=== PATIENT | female | born 1975 | race American Indian/Alaskan Native ===

== ENCOUNTER 2022-07-10 13:42 | Emergency (ER) | payer BC ==
[2022-07-10] MEDS ORDERED: SODIUM CHLORIDE 0.9% 1000 ML 1,000 ML IV ONE (14:37)
[2022-07-10] MEDS ORDERED: HYDROmorphone 1 MG/1 ML INJ IV ONE ×2 (14:37→19:41)
[2022-07-10] MEDS ORDERED: ONDANSETRON 4 MG/2 ML INJ IV ONE ×2 (14:37→19:41)
--- NOTE | 2022-07-10 15:28 | Emergency Department Report ---
ED Abdominal Pain HPI - General Chief Complaint: Abdominal Pain Stated Complaint: N/V Time Seen by Provider: 07/10/22 14:24 Source: EMS Mode of arrival: Stretcher Limitations: No Limitations - History of Present Illness Initial Comments: 41-year-old female the past medical history of hypertension currently on medications, previous cholecystectomy and tummy time presents to the hospital planing of abdominal pain, nausea, vomiting with p.o. intolerance times since approximately 3:57 AM. Pain is in epigastric area and feels like it is descrived constant ache worse with palpation and vomiting. No alleviating factors reported. Patient denies fever, hematemesis, diarrhea, or urinary symptoms. Patient also reports a history of GERD with exacerbation of reflux symptoms Severity scale (0 -10): 10 - Related Data Previous Rx's Medication Instructions Recorded Last Taken Type Ondansetron [Zofran Odt] 4 mg PO Q8HR PRN #20 tab.rapdis 07/10/22 Unknown Rx traMADoL [Ultram] 50 mg PO Q6HR PRN #14 tablet 07/10/22 Unknown Rx Allergies Allergy/AdvReac Type Severity Reaction Status Date / Time morphine Allergy Unknown Verified 07/10/22 13:56 ED Review of Systems ROS: Stated complaint: N/V Other details as noted in HPI Comment: All other systems reviewed and negative ED Past Medical Hx - Past Medical History Hx Hypertension: Yes - Surgical History Hx Cholecystectomy: Yes Additional Surgical History: A tummy tuck - Medications Home Medications: Home Medications Medication Instructions Recorded Confirmed Last Taken Type Ondansetron [Zofran Odt] 4 mg PO Q8HR PRN #20 tab.rapdis 07/10/22 Unknown Rx traMADoL [Ultram] 50 mg PO Q6HR PRN #14 tablet 07/10/22 Unknown Rx ED Physical Exam - General Limitations: No Limitations - Other Other exam information: General: Mild distress secondary to pain Head: Atraumatic Eyes: normal appearance Neck: Normal appearance, no midline tenderness Chest: Clear to auscultation bilaterally CV: Regular rate and rhythm Abdomen: Soft, normal bowel sounds, generalized abdominal tenderness greatest in epigastric area. No rebound or guarding Back: Normal inspection Extremity: Normal inspection, full range of motion Neuro: Alert O x 3, no facial asymmetry, speech clear, no gross motor sensory deficit Psych: Appropriate behavior Skin: No rash ED Course Vital Signs 07/10/22 07/10/22 07/10/22 13:52 14:14 14:30 Temperature 98.1 F Pulse Rate 64 82 53 L Respiratory 20 18 20 Rate Blood Pressure Blood Pressure 168/74 [Left] O2 Sat by Pulse 100 99 98 Oximetry 07/10/22 07/10/22 07/10/22 15:00 15:30 16:00 Temperature Pulse Rate 73 49 L 76 Respiratory 24 23 16 Rate Blood Pressure 187/107 187/107 187/107 Blood Pressure [Left] O2 Sat by Pulse 99 92 Oximetry 07/10/22 07/10/22 07/10/22 16:30 17:00 17:30 Temperature Pulse Rate 55 L 60 57 L Respiratory 19 18 20 Rate Blood Pressure 139/83 139/83 146/104 Blood Pressure [Left] O2 Sat by Pulse 97 100 98 Oximetry 07/10/22 18:20 Temperature Pulse Rate 129 H Respiratory Rate Blood Pressure 168/86 Blood Pressure [Left] O2 Sat by Pulse 100 Oximetry ED Medical Decision Making - Lab Data Result diagrams: 07/10/22 15:01 07/10/22 15:01 Lab Results 07/10/22 07/10/22 07/10/22 Range/Units 15:01 15:01 15:01 WBC 4.7 (4.5-11.0) K/mm3 RBC 4.36 (3.65-5.03) M/mm3 Hgb 12.9 (10.1-14.3) gm/dl Hct 36.9 (30.3-42.9) % MCV 85 (79-97) fl MCH 30 (28-32) pg MCHC 35 H (30-34) % RDW 16.1 H (13.2-15.2) % Plt Count 394 (140-440) K/mm3 Lymph % (Auto) 11.3 L (13.4-35.0) % [place] % (Auto) 3.9 (0.0-7.3) % Eos % (Auto) 0.0 (0.0-4.3) % Baso % (Auto) 0.4 (0.0-1.8) % Lymph # (Auto) 0.5 L (1.2-5.4) K/mm3 [place] # (Auto) 0.2 (0.0-0.8) K/mm3 Eos # (Auto) 0.0 (0.0-0.4) K/mm3 Baso # (Auto) 0.0 (0.0-0.1) K/mm3 Seg Neutrophils % 84.4 H (40.0-70.0) % Seg Neutrophils # 4.0 (1.8-7.7) K/mm3 Sodium 139 (137-145) mmol/L Potassium 3.6 (3.6-5.0) mmol/L Chloride 100.5 (98-107) mmol/L Carbon Dioxide 19 L (22-30) mmol/L Anion Gap 23 mmol/L BUN 11 (7-17) mg/dL Creatinine 0.7 (0.6-1.2) mg/dL Estimated GFR > 60 ml/min BUN/Creatinine Ratio 16 % Glucose 114 H (65-100) mg/dL Calcium 10.0 (8.4-10.2) mg/dL Total Bilirubin 0.90 (0.1-1.2) mg/dL AST 16 (5-40) units/L ALT 9 (7-56) units/L Alkaline Phosphatase 75 (35-129) units/L Total Protein 8.2 (6.3-8.2) g/dL Albumin 5.3 H (3.9-5) g/dL Albumin/Globulin Ratio 1.8 % Lipase 25 (13-60) units/L HCG, Quant < 1.00 (0-4) mIU/mL - Radiology Data Radiology results: report reviewed CT ABDOMEN AND PELVIS WITH CONTRAST INDICATION / CLINICAL INFORMATION: abd pain n,v. TECHNIQUE: Axial CT images were obtained through the abdomen and pelvis after 80 cc Omnipaque [address] scans at this location are performed using CT dose reduction for ALARA by means of automated exposure control. COMPARISON: None available. FINDINGS: LOWER CHEST: No significant abnormality. AORTA / ARTERIES: No significant abnormality. IVC / VEINS: No significant abnormality. LYMPH NODES: No significant adenopathy. COLON: No significant abnormality. APPENDIX: No significant abnormality. STOMACH / SMALL BOWEL: Linear calcifications within the stomach lumen, likely related to ingested material. The small bowel is without significant abnormality. PERITONEUM: No free fluid. No free air. No fluid collection. LIVER: No significant abnormality. GALLBLADDER: Cholecystectomy. BILE DUCTS: No significant abnormality. PANCREAS: No significant abnormality. SPLEEN: No significant abnormality. ADRENALS: No significant abnormality. RIGHT KIDNEY / URETER: No significant abnormality. LEFT KIDNEY / URETER: No significant abnormality. URINARY BLADDER: No significant abnormality. REPRODUCTIVE ORGANS: Fibroid uterus measuring 12.4 x 8.7 x 8.6 cm. SKELETAL SYSTEM: No significant abnormality. ADDITIONAL FINDINGS: None. IMPRESSION: 1. Linear calcifications within the gastric lumen, likely related to ingested material. 2. Fibroid uterus. - Medical Decision Making 46-year female presents to the hospital complaining of upper abdominal pain with nausea and vomiting. She denies urinary symptoms. No signs of fever or leukocytosis. CT abdomen pelvis does not show acute abnormality. Patient symptoms improved with ED treatment and she will be discharged on medication with symptomatic treatment. Patient states that she does take a medication for reflux at home and she cannot tolerate tramadol Critical Care Time: No Critical care attestation.: If time is entered above; I have spent that time in minutes in the direct care of this critically ill patient, excluding procedure time. ED Disposition Clinical Impression: Nausea & vomiting, Abdominal pain, Fibroid uterus Disposition: HOME / SELF CARE / HOMELESS Is pt being admited?: No Does the pt Need Aspirin: No Condition: Stable Instructions: Abdominal Pain (ED), Nausea and Vomiting, Adult, Abdominal Pain, Adult Additional Instructions: Take the medication as prescribed. Follow-up with your doctor or doctor/clinic provided. Return if symptoms worsen as indicated by your discharge instructions. Prescriptions: traMADoL [Ultram] 50 mg PO Q6HR PRN #14 tablet PRN Reason: Pain Ondansetron [Zofran Odt] 4 mg PO Q8HR PRN #20 tab.rapdis PRN Reason: Nausea And Vomiting Referrals: SETH HANSEN MD [Primary Care Provider] - 3-5 Days Time of Disposition: 19:41
[2022-07-10 17:35] LABS: Alanine Aminotransferase 9 units/L (7-56); Albumin 5.3 g/dL (3.9-5); Blood Urea Nitrogen 11 mg/dL (7-17); Hemolysis Index 10
[2022-07-10 17:36] LABS: Basophils % (Auto) 0.4 % (0.0-1.8); Hematocrit 36.9 % (30.3-42.9); Hemoglobin 12.9 gm/dl (10.1-14.3); Lymphocytes # (Auto) 0.5 K/mm3 (1.2-5.4); Lymphocytes % (Auto) 11.3 % (13.4-35.0); Mean Corpuscular HGB Conc 35 % (30-34); Mean Corpuscular Volume 85 fl (79-97); Monocytes # (Auto) 0.2 K/mm3 (0.0-0.8); Monocytes % (Auto) 3.9 % (0.0-7.3); Platelet Count 394 K/mm3 (140-440); Red Blood Count 4.36 M/mm3 (3.65-5.03); Red Cell Distribution Width 16.1 % (13.2-15.2)
[2022-07-10 17:50] LABS: BUN/Creatinine Ratio 16
--- NOTE | 2022-07-10 18:36 | Cat Scan Report ---
CT ABDOMEN AND PELVIS WITH CONTRAST INDICATION / CLINICAL INFORMATION: abd pain n,v. TECHNIQUE: Axial CT images were obtained through the abdomen and pelvis after 80 cc Omnipaque [address] scans at this location are performed using CT dose reduction for ALARA by means of automated exposure control. COMPARISON: None available. FINDINGS: LOWER CHEST: No significant abnormality. AORTA / ARTERIES: No significant abnormality. IVC / VEINS: No significant abnormality. LYMPH NODES: No significant adenopathy. COLON: No significant abnormality. APPENDIX: No significant abnormality. STOMACH / SMALL BOWEL: Linear calcifications within the stomach lumen, likely related to ingested mat erial. The small bowel is without significant abnormality. PERITONEUM: No free fluid. No free air. No fluid collection. LIVER: No significant abnormality. GALLBLADDER: Cholecystectomy. BILE DUCTS: No significant abnormality. PANCREAS: No significant abnormality. SPLEEN: No significant abnormality. ADRENALS: No significant abnormality. RIGHT KIDNEY / URETER: No significant abnormality. LEFT KIDNEY / URETER: No significant abnormality. URINARY BLADDER: No significant abnormality. REPRODUCTIVE ORGANS: Fibroid uterus measuring 12.4 x 8.7 x 8.6 cm. SKELETAL SYSTEM: No significant abnormality. ADDITIONAL FINDINGS: None. IMPRESSION: 1. Linear calcifications within the gastric lumen, likely related to ingested material. 2. Fibroid uterus. Signer Name: Des Sheridan DO Signed: 07/10/2022 6:32 PM Workstation Name: [id number]
[2022-07-10] MEDS ORDERED: FAMOTIDINE 20 MG/2 ML INJ IV ONE (18:47)
[2022-07-10] MEDS ORDERED: ALUM-MAG HYDROXIDE-SIMETHICONE 200-200-20MG/5ML ORAL LIQD 30 ML PO ONE (18:47)
[2022-07-10 20:42] VITALS: BP 165/90
== END 2022-07-10 20:43 | disposition home or self-care (01) ==
LOC: ED 13:42
DX: R10.9 Unspecified abdominal pain (principal); R11.2 Nausea with vomiting, unspecified; D25.9 Leiomyoma of uterus, unspecified; I10 Essential (primary) hypertension; Z90.49 Acquired absence of other specified parts of digestive tract; Z91.09 Other allergy status, other than to drugs and biological substances
CPT/HCPCS: 36415; 74177; 80053; 83690; 84702; 85025; 96361; 96374; 96375; 96376; 99284; J1170; J2405; J3490; J7030; Q9967